=== PATIENT | female | born 1995 | race Caucasian/White ===

== ENCOUNTER 2017-11-28 15:31 | Emergency (ER) | payer OTHER, SELFPAY ==
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
[2017-11-28 17:07] LABS: Pregnancy Test - Urine (BHCG) Negative (Negative); Pregu Control Background? CLEAR/WHITE (CLR/WHITE); Pregu Control Bar Appear? YES (CONTROL BAR); Specific Gravity 1.006 (1.002-1.036)
[2017-11-28] MEDS ORDERED: Ibuprofen 800 MG TAB ONE (17:27)
== END 2017-11-28 17:35 | disposition home or self-care (01) ==
LOC: ERS 15:31
DX: M79.671 Pain in right foot (principal); F17.210 Nicotine dependence, cigarettes, uncomplicated; V43.92XA Unspecified car occupant injured in collision with other type car in traffic accident, initial encounter
CPT/HCPCS: 81025

== ENCOUNTER 2019-12-21 01:12 | Emergency (ER) | payer SELFPAY ==
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
== END 2019-12-21 01:52 | disposition home or self-care (01) ==
LOC: ERS 01:12
DX: M94.0 Chondrocostal junction syndrome [Tietze] (principal); F17.210 Nicotine dependence, cigarettes, uncomplicated; F41.9 Anxiety disorder, unspecified
CPT/HCPCS: 71045; 93005